=== PATIENT | male | born 1940 | race Caucasian/White ===

== ENCOUNTER → 2017-07-12 | Outpatient (CLI) | payer MEDICARE, OTHER | END | disposition home or self-care (01) | LOC: GMAL 10:13 | PROVIDERS: ATTEND Family Medicine | DX: D51.3 Other dietary vitamin B12 deficiency anemia (principal); Z12.5 Encounter for screening for malignant neoplasm of prostate; R53.82 Chronic fatigue, unspecified; E55.9 Vitamin D deficiency, unspecified; R53.83 Other fatigue | CPT/HCPCS: 82306; 82607; 84443; G0103 ==

== ENCOUNTER → 2017-08-01 | Outpatient (CLI) | payer MEDICARE, OTHER | END | disposition home or self-care (01) | LOC: GMAL 11:53 | PROVIDERS: ATTEND Family Medicine | DX: R97.20 Elevated prostate specific antigen [PSA] (principal) ==

== ENCOUNTER → 2018-07-25 | Outpatient (CLI) | payer MEDICARE, OTHER | LOC: GMAL 11:00 | PROVIDERS: ATTEND Family Medicine | DX: D51.3 Other dietary vitamin B12 deficiency anemia (principal); R97.20 Elevated prostate specific antigen [PSA]; R53.83 Other fatigue; E55.9 Vitamin D deficiency, unspecified ==

== ENCOUNTER → 2018-08-09 | Outpatient (CLI) | payer MEDICARE, OTHER ==
--- NOTE | 2018-08-09 16:29 | CT ---
EXAM DESCRIPTION: Chest w/Contrast : Computed Tomography. CLINICAL HISTORY: 77 years Male ABN CXR COMPARISON: Chest x-ray 08/02/2018. Prior CT scan abdomen and lower chest at outside imaging facility 10/17/2017. TECHNIQUE: Spiral-axial scans at 5 x 5 mm intervals through the lungs and thorax with IV contrast. 2.5 x 5 mm lung algorithm axial reconstructions. Coronal and sagittal 2.0 Mm reconstructions. No adverse reactions. Total Exam DLP: 477.45 mGy-cm. This exam was performed according to our departmental dose-optimization program which includes automated exposure control, adjustment of the mA and/or kV according to patient size and/or use of iterative reconstruction technique; to reduce radiation dose to as low as reasonably achievable (ALARA). Nodule measurements under 10 mm are given as mean value of 3 axes diameters. FINDINGS: Lungs and large airways: Emphysematous blebs in a centrilobular pattern more prevalent in the upper lung rojas compared to the lower lung rojas. 4 mm solid nodule subpleural right middle lobe on lung axial series 4, image 91. 3 mm and 4 mm solid nodules in the subpleural lateral left lower lobe on series 4, images 111 and 112. 4 mm subpleural solid nodule in the inferior lingula on series 4, image 96. 4 mm solid nodule or pleural thickening in the inferior lingula on axial series 4, image 122. Minimal bilateral posterior dependent atelectasis in the lower lobes. Pleural spaces: 3 mm calcified nodule in the abutting the pleura in the lateral right upper lobe on lung axial series 4, image 58. Scattered focal thickening. Also pleural thickening in the apices and at the lung bases. No effusion or pneumothorax. Mediastinum and Clara: 11 x 14 mm lymph node in the mid right hilum on soft tissue axial series 2, image 41 and 10 x 12 mm lymph node on series 2, image 34.. No other enlarged lymph nodes or soft tissue masses. Great vessels and Heart: Atherosclerotic calcifications in the aortic arch and descending thoracic aorta with minimal intimal wall thickening. Atherosclerotic coronary artery calcifications. Soft tissues of neck base, axillae, and chest wall: No enlarged axillary nodes. Heterogeneous thyroid enhancement bilaterally. Upper abdomen: No fluid or free air in the included peritoneal space. Adrenal glands and spleen normal size and enhancement. Pancreas liver and stomach partially visualized. Atherosclerotic calcifications in the included abdominal aorta. Osseous structures: Multiple levels of thoracic kyphosis. Round sclerotic lesion in the posterior superior aspect of the T3 vertebral body inferior to the endplate. Proximally 6 mm diameter. Smaller sclerotic densities in the T6 vertebral body. Anterior cervical fusion construct C5-C7. Minimal arthrosis in the left glenohumeral joint. Sternoclavicular arthrosis bilaterally. IMPRESSION: 1. Bilateral solid lung nodules 4 mm or less. Small round pleural calcification. Nodule versus pleural thickening in the inferior lingula. Emphysematous findings in the bilateral upper lung rojas more prominent. 2 right hilar nodes minimally enlarged. [facility] Best Practice guidelines following Fleischner Society 2017 Society for multiple pulmonary nodules, recommendation for optional CT at 12 month interval. Please see below*. 2. Round sclerotic lesion proximally 6 mm diameter in the posterior T3 vertebral body and similar sclerotic lesions but smaller in the T6 vertebral body. No other sclerotic or lytic bone lesions noted. Consider follow-up thoracic spine MRI or radionuclide bone scan. Differential diagnosis would include metastatic prostate cancer in this elderly male * 2017 Fleischner Society Recommendations for Multiple Solid Lung Nodules Follow-Up base on size (average of long- and short-axis diameters). Use most suspicious nodule for followup. Nodule Size <6 mm Low-Risk Patient: No routine follow-up Nodule Size <6 mm High-Risk Patient: Optional CT at 12 months Electronically signed by: Erasmo Palencia MD 08/09/2018 4:28 PM [facility]
== END ==
LOC: CT 12:18
PROVIDERS: ATTEND Family Medicine
DX: R93.89 Abnormal findings on diagnostic imaging of other specified body structures (principal); R91.1 Solitary pulmonary nodule

== ENCOUNTER → 2018-08-13 | Outpatient (CLI) | payer MEDICARE, OTHER ==
--- NOTE | 2018-08-13 15:44 | MRI ---
EXAM DESCRIPTION: Thoracic Spine w/wo Contrast: Magnetic Resonance Imaging. CLINICAL HISTORY: R93.89. Abnormal findings on diagnostic imaging of unspecified other body structures. COMPARISON: CT scan of the chest without contrast 08/09/2018. TECHNIQUE: Multiplanar, multiple standard sequences, non contrast MRI, thoracic spine. FINDINGS: Where a bright sclerotic lesion was seen on the CT scan, is a hypointense round nodular object in the posterior T3 vertebral body inferior to the superior endplate consistent with sclerotic bone. No contrast enhancement or marrow edema.. 2 smaller hypointense objects are seen in the T6 vertebral body consistent with dense sclerotic bone seen on the CT scan. No contrast enhancement. No marrow edema. Desiccation of the T1-2 through T9-10 discs. Anterior bulging and spur formation at some levels predominantly from T6-7 through T9-10 anteriorly. Decreased disc space at T6-7 with small posterior midline bulge abutting the cord. Normal contrast enhancement. Bilateral mild foraminal narrowing. Posterior right paracentral bulge of the T9-10 disc but not impinging the cord. Bilateral mild to moderate foraminal narrowing. No significant canal narrowing. Normal contrast enhancement. Other discs demonstrate normal signal with disc space preserved. No enhancement. Hypertrophic changes in the left facet at T10-11 abutting the posterior cord and narrowing the foramen on the left. Normal contrast enhancement. Remaining discs with normal signal. Disc spaces are preserved. Canal and foramina are patent. No scoliosis. Facet joints are unremarkable. Conus terminates at T12-L1. Cord with normal signal, no compression. Normal contrast enhancement. Paravertebral soft tissues are unremarkable. Normal marrow signal in the remaining vertebral bodies and the posterior elements. Vertebral bodies are not compressed at any level. IMPRESSION: 1. Sclerotic nodular objects in the T3 and T6 vertebral body seen on the recent lung CT scan are sclerotic bone on the MRI scan with no marrow edema or contrast enhancement suggestive of benign lesions. 2. Multiple levels of disc desiccation anterior bulging and spurs. Posterior disc bulging at 2 levels. No significant canal or foraminal stenosis at any level. Hypertrophic posterior facet impressing on the cord but no canal stenosis. Electronically signed by: Erasmo Palencia MD 08/13/2018 3:43 PM [facility]
== END ==
LOC: MRI 11:14
PROVIDERS: ATTEND Family Medicine
DX: R93.89 Abnormal findings on diagnostic imaging of other specified body structures (principal); M51.34 Other intervertebral disc degeneration, thoracic region

== ENCOUNTER 2018-10-17 05:41 | Day surgery (SDC) | payer MEDICARE, OTHER ==
[2018-10-17] MEDS ORDERED: LACTATED RINGERS 1,000 ML ONE (06:36)
--- NOTE | 2018-10-17 09:22 | OP ---
DATE OF PROCEDURE: 10/17/18 PREPROCEDURE DIAGNOSIS: 1. Average risk screening colonoscopy. 2. Last colonoscopy was over 10 years ago. POSTPROCEDURE DIAGNOSIS: 1. Colonic polyp. 2. Internal hemorrhoids. PROCEDURE: 1. Colonoscopy with snare polypectomy. SURGEON: Ashvin Chong MD. SEDATION: Monitored anesthesia care. ESTIMATED BLOOD LOSS: Less than 5 mL. PROCEDURE: Informed consent was obtained prior to sedation. The preprocedure cardiopulmonary assessment was satisfactory. The patient was brought to the Endoscopy Suite and placed in the left lateral decubitus position. The patient was then sedated by the anesthesia team. Digital rectal and perianal exams were normal. The tip of the Olympus colonoscope was inserted into the rectum and advanced under direct visualization to the cecum as identified by the presence of the appendiceal orifice and ileocecal valve. Upon reaching the cecum, the endoscope was slowly withdrawn. Preparation of the colon was adequate. In the distal transverse colon, there was an 8 mm flat polyp. This was resected with cold snare polypectomy and retrieved for pathology. A retroflexed view of the anal verge showed small non-bleeding internal hemorrhoids. The endoscope was then withdrawn from the patient and the procedure terminated. RECOMMENDATION: 1. Discharge the patient home with escort. 2. Resume regular diet. 3. Continue present medications. 4. Followup pathology. 5. Consider surveillance colonoscopy in 3 years' time. 6. Return to my office p.r.n. #[id number] MTDD
[2018-10-17] MEDS ORDERED: PROPOFOL 200 MG/20 ML VIAL IV ONE (10:00)
[2018-10-17 10:09] VITALS: BP 120/65; TEMP 98.6; O2SAT 95
== END 2018-10-17 09:55 | disposition home or self-care (01) ==
LOC: AMB 05:41
PROVIDERS: ATTEND Internal Medicine Gastroenterology
DX: Z12.11 Encounter for screening for malignant neoplasm of colon (principal); D12.3 Benign neoplasm of transverse colon; K64.8 Other hemorrhoids; I10 Essential (primary) hypertension; J45.909 Unspecified asthma, uncomplicated; E78.00 Pure hypercholesterolemia, unspecified; Z86.010 Personal history of colon polyps; Z85.46 Personal history of malignant neoplasm of prostate; Z87.891 Personal history of nicotine dependence; Z79.899 Other long term (current) drug therapy
CPT/HCPCS: 00812; 45385; 88305; J3490; J7120

== ENCOUNTER → 2019-02-11 | Outpatient (CLI) | payer MEDICARE, OTHER ==
--- NOTE | 2019-02-19 11:03 | CT ---
Study: CT Chest. Indication: ABNL FINDINGS OF LUNG FIELD Technique: CT imaging of the chest obtained after intravenous administration of contrast. This exam was performed according to our departmental dose-optimization program, which includes automated exposure control, adjustment of the mA and/or kV according to patient size and/or use of iterative reconstruction technique. Comparison: None Findings: Pronounced atherosclerosis great vessels, aorta, coronary arteries. Degenerative changes of the spine noted. Several prominent bilateral hilar lymph nodes with the largest at the right inferior hilar region measuring 14 mm x 12 mm. Moderate emphysema. No consolidation, pleural effusion, pneumothorax, or pulmonary mass. Several scattered noncalcified pulmonary nodules throughout the lungs. The largest at the left lower lobe on image 106 measures 4.5 mm. Impression: Enlarged bilateral hilar lymph nodes, right greater than left. Follow-up contrast-enhanced CT chest in 6 months recommended. Moderate emphysema with several noncalcified nodules throughout the lungs measuring up to 4.5 mm. Follow-up CT chest in 12 months is optional. Atherosclerosis. No consolidation. Electronically signed by: Ab Edmondson MD 02/19/2019 11:01 AM CDT
== END ==
LOC: CT 13:30
PROVIDERS: ATTEND Internal Medicine Critical Care Medicine
DX: R91.8 Other nonspecific abnormal finding of lung field (principal); I70.90 Unspecified atherosclerosis; J43.9 Emphysema, unspecified; R59.0 Localized enlarged lymph nodes

== ENCOUNTER → 2019-09-02 | Outpatient (CLI) | payer MEDICARE, OTHER | LOC: GMAL 14:54 | PROVIDERS: ATTEND Family Medicine | DX: R97.20 Elevated prostate specific antigen [PSA] (principal); D51.3 Other dietary vitamin B12 deficiency anemia; R53.83 Other fatigue; E55.9 Vitamin D deficiency, unspecified; I10 Essential (primary) hypertension ==

== ENCOUNTER → 2019-10-01 | Outpatient (CLI) | payer MEDICARE, OTHER | DX: R59.1 Generalized enlarged lymph nodes (principal); J40 Bronchitis, not specified as acute or chronic; R91.8 Other nonspecific abnormal finding of lung field; I10 Essential (primary) hypertension; J44.9 Chronic obstructive pulmonary disease, unspecified; C61 Malignant neoplasm of prostate ==

== ENCOUNTER → 2020-02-03 | Outpatient (CLI) | payer MEDICARE, OTHER ==
--- NOTE | 2020-02-03 11:00 | MRI ---
EXAM DESCRIPTION: Cervical Spine CLINICAL HISTORY: 79 years Male, CERVICALGIA COMPARISON: None. TECHNIQUE: Multisequence, multiplanar images of the cervical spine obtained without intravenous contrast. FINDINGS: Vertebrae: Susceptibility artifact secondary to anterior fusion construct at C5-C6 and C6-C7. Within these limitations, no acute fracture acute compression deformity appreciated. Moderate cervical kyphosis from C2 through C4 centered at C3. Trace retrolisthesis of C3 on C4 which may be contributed by facet hypertrophy. No suspicious marrow signal of the nonsurgical levels. Spinal cord: No cerebellar ectopia. Normal cord signal. Multilevel flattening of the spinal cord as detailed below. Discs, facets, spinal canal, and neural foramina: Interbody implant centered in the C5-C6 and C6-C7 disc spaces. Disc desiccation within the remaining cervical spine. Mild C3-C4 and moderate C4-C5 disc space narrowing. C2-C3: No disc osteophyte complex. Posterior central annular fissure measuring 4 x 2 mm. Moderate right and mild left uncovertebral spurring. Moderate bilateral facet arthropathy. Mild spinal canal stenosis. Moderate right and mild left neural foraminal stenosis. C3-C4: Mild uncovering posterior disc space and superimposed small disc osteophyte complex measuring no greater than 2-3 mm in thickness AP. Moderate severe uncovertebral spurring. Moderate bilateral facet arthropathy. Moderate spinal canal stenosis with AP narrowing to 6 mm and focal indentation of the ventral spinal cord. Moderate severe bilateral neural foraminal stenosis. C4-C5: Moderate posterior central disc osteophyte complex measuring up to 4 mm AP and 7 mm transverse. Severe facet arthropathy. Severe spinal canal stenosis with focal indentation of the ventral spinal cord. Moderate severe bilateral neural foraminal stenosis. C5-6: Interbody fusion. Moderate spinal canal stenosis. Mild bilateral neural foraminal stenosis. C6-C7: Interbody fusion. Mild spinal canal stenosis. Mild bilateral neural foraminal stenosis. C7-T1: No significant findings. Other findings: Unremarkable. IMPRESSION: 1. No acute fracture. 2. ACDF at C5-C6, C6-C7. 3. Cervical spondylosis with kyphosis centered at C3 and grade 1 retrolisthesis of C3 on C4 contribute by facet hypertrophy. 4. Up to moderate spinal canal stenosis and multilevel flattening of the ventral spinal cord as above. 5. Multilevel neural foraminal compromise, greatest and moderate to severe at bilateral C4, bilateral C5. Electronically signed by: Man Trujillo MD 02/03/2020 10:59 AM CDT
--- NOTE | 2020-02-03 17:10 | CT ---
EXAM DESCRIPTION: Abdomen/Pelvis w/wo Contrast: Computed Tomography. CLINICAL HISTORY: GENERALIZED ABDOMINAL PAIN COMPARISON: None. TECHNIQUE: Spiral-axial scans at 5 x 5 mm intervals through the abdomen and pelvis before and after 75 mL Optiray 320 nonionic IV contrast. Water-soluble Gastrografin oral contrast. Coronal and sagittal 2.0 mm reconstructions. No delayed scans. N no adverse reactions. Total Exam DLP 2010 mGy - cm. This exam was performed according to our departmental CT dose-optimization program which includes automated exposure control, adjustment of the mA and/or kV according to patient size and/or use of iterative reconstruction technique; to reduce radiation dose to as low as reasonably achievable (ALARA). FINDINGS: Lung bases and pleura: Minimal scarring is stable. Liver, Stomach, Spleen, Adrenal Glands: Long axis right lobe 17 cm. Small sliding hiatal hernia. Oral contrast in the stomach. Other solid organs are negative. Pancreas, Gallbladder, Ducts: The head of the pancreas is enlarged and heterogeneous with mixed enhancement; slight irregularity of the capsule and fatty stranding. Small hypoechoic object could represent a dilated duct or early pseudocyst. Body and tail the pancreas are unremarkable. Gallbladder is minimally distended as is the distal common bile duct. Pancreatic duct not seen. Kidneys and Ureters: Multiple vascular calcifications. Possible 2 mm stone in the upper collecting system of the right kidney. No obstructive process. Symmetric minimal perirenal stranding. Ureters are negative. Mesentery: Stranding around the pancreatic head as described. No free air or free fluid. Aorta: Moderate atherosclerotic disease predominately mid and distal aorta extending into the bilateral common iliac arteries with narrowing and possible stenosis proximal left common iliac artery. Small Bowel: Thickening of the wall of the duodenum abutting the head of the pancreas with minimal dilation. Oral contrast throughout the small bowel. No distention. Terminal Ileum/Cecum: Normal caliber. Appendix absent. Surgical clips at epididymides site. No inflammatory changes. Colon: Minimal to moderate fecal matter predominantly proximal. Diverticula distal descending colon and sigmoid colon but no complications. Pelvic Organs: Prostate gland abutting the base of the urinary bladder which contains IV contrast. No free fluid. Spine and Bony Pelvis: Advanced spondylosis L2-3, L4-5, and L5-S1. Significant foraminal narrowing bilaterally at the lower 2 levels with scoliosis. Also spondylosis lower thoracic spine. Bilateral arthrosis upper SI joints and bilateral hip joints. Abdominal Wall/Back Soft Tissues: Large left fatty inguinal hernia smaller on the right with no incarcerated bowel or other complications. IMPRESSION: 1. CT findings of acute pancreatitis in the head of the pancreas. Small dilated duct more likely than small pseudocyst in the pancreatic head. Distal common bile duct is minimally dilated. Thickening of the medial wall of the adjacent duodenum but no obstruction. No free air or free fluid. 2. Diffuse atherosclerotic calcifications in the bilateral kidneys with a 2 mm radiodense stone in the upper pole of the right kidney without obstruction. Advanced atherosclerotic disease in the mid and distal aorta. Especially the left common iliac artery which may be critically stenotic. 3. Small sliding hiatal hernia with no complications. Constipation proximal colon and diverticulosis distal colon with no complications. Large left inguinal hernia and small right inguinal hernia with no incarcerated bowel or other complications. Advanced arthrosis bilateral hip joints and multiple levels of lumbar spondylosis with significant foraminal narrowing as described above. CRITICAL COMMUNICATION: The critical value was communicated directly by Dr. Palencia via phone call, with Dr. Indra Weiner, at approximately 1705 hours, on February 03, 2020. Electronically signed by: Erasmo Palencia MD 02/03/2020 5:08 PM CDT
== END ==
LOC: MRI 09:00
PROVIDERS: ATTEND Family Medicine
DX: K85.90 Acute pancreatitis without necrosis or infection, unspecified (principal); I70.0 Atherosclerosis of aorta; I70.1 Atherosclerosis of renal artery; N20.0 Calculus of kidney; K44.9 Diaphragmatic hernia without obstruction or gangrene; K57.30 Diverticulosis of large intestine without perforation or abscess without bleeding; K40.20 Bilateral inguinal hernia, without obstruction or gangrene, not specified as recurrent; K59.00 Constipation, unspecified; M16.0 Bilateral primary osteoarthritis of hip; M47.896 Other spondylosis, lumbar region; Z98.1 Arthrodesis status; M47.892 Other spondylosis, cervical region; M48.02 Spinal stenosis, cervical region; M46.92 Unspecified inflammatory spondylopathy, cervical region; M40.202 Unspecified kyphosis, cervical region; M43.12 Spondylolisthesis, cervical region

== ENCOUNTER → 2020-02-04 | Outpatient (CLI) | payer MEDICARE, OTHER ==
--- NOTE | 2020-02-04 17:21 | US ---
EXAM DESCRIPTION: Abdomen,Complete: Ultrasound. CLINICAL HISTORY: 79 years MaleGENERALIZED ABDOMINAL PAIN COMPARISON: CT scan abdomen and pelvis February 02. TECHNIQUE: Transabdominal scanning: grayscale and Doppler modes. FINDINGS: Gallbladder: Dependent sludge in the gallbladder with no stones. Minimal enlargement. No fluid around the gallbladder. No wall thickening. 2.7 mm. Tender with transducer pressure. Common bile duct: caliber 4.3 mm within normal limits. Liver: normal echogenicity; contour liver capsule smooth where seen. Small cyst subcapsular abutting the shaista hepatis measures 9.4 mm. No fluid around the liver. Intrahepatic biliary ducts normal caliber. Doppler hepatopedal flow and normal caliber portal vein. Caliber 11 mm at the shaista hepatis. Long axis right lobe 17.7 cm. Pancreas: Head of pancreas not well visualized; remainder of pancreas unremarkable size and echogenicity. Duct not seen. Complete abdominal aorta: Normal caliber from the proximal segment to the distal bifurcation. IVC: visualized and normal caliber. Right kidney: long axis measures 9.8 cm.; Volume 167.9 mL. Increased cortical Echogenicity, but less than the liver. 8 mm cortical thickness. No echogenic stones or hydronephrosis. Color Doppler shows vascularity. Left kidney: long axis measures 10.6 cm.; volume 190.2 mL Increased cortical Echogenicity, but less than the liver. 13 mm cortical thickness. No echogenic stones or hydronephrosis. Color Doppler shows vascularity. Spleen: Normal. No focal lesions.. Long axis is 10.7 cm.. Other: None. IMPRESSION: 1. Gallbladder minimally dilated with dependent sludge. Tenderness with transducer pressure. This can indicate a calculus or chronic cholecystitis. Consider radionuclide hepatobiliary function evaluation of gallbladder ejection fraction. Normal caliber common bile duct. 2. Liver is minimally enlarged but otherwise unremarkable. Head of pancreas not well seen. Please see previous CT scan images and report. No ascites. 3. Bilateral kidneys with cortical thinning more on the right and evidence of medical renal disease. No stones or hydronephrosis. Spleen is unremarkable. Normal caliber of the great vessels. Electronically signed by: Erasmo Palencia MD 02/04/2020 5:19 PM CDT
== END ==
LOC: LAB.O 10:09
PROVIDERS: ATTEND Family Medicine
DX: K85.90 Acute pancreatitis without necrosis or infection, unspecified (principal); K82.9 Disease of gallbladder, unspecified; N28.9 Disorder of kidney and ureter, unspecified; R16.0 Hepatomegaly, not elsewhere classified

== ENCOUNTER 2020-08-12 15:05 | Emergency (ER) | payer MEDICARE, OTHER ==
--- NOTE | 2020-08-12 17:07 | ED.PDOC ---
History of Present Illness - General Chief Complaint: Respiratory Problem Stated Complaint: hypoxic, sob, Time Seen by Provider: 08/12/20 16:17 Source: patient, family Exam Limitations: no limitations, physical impairment - APPEARS HARD OF HEARING, HAS TROUBLE FOLLOWING QUESTIONS. - History of Present Illness Initial Comments: BEGAN HAVING FEVER AND CHILLS ON 08/08/20, TESTED POSITIVE FOR COVID-19 ON 08/11. HAD INTENSE SOB AT HOME THIS MORNING. WAS ORIGINALLY SCHEDULED TO GET BAM TODAY, BUT WAS FOUND VERY HYPOXIC AT INFUSION THERAPY, THE BAM INFUSION WAS STOPPED HE NO LONGER MET PROTOCOL PARAMETERS DUE TO REQUIREMENT FOR OXYGEN TO MAINTAIN HIS NORMAL OXYGEN SATURATION. AND HE WAS TRANSFERED TO THE ER. PATIENT REPORTS A HISTORY OF COPD BUT DOES NOT NORMALLY REQUIRE OXYGEN AT HOME. HE AND HIS STATE HIS ONLY OTHER MEDICAL PROBLEM IS HYPERTENSION. Possible Cause: no prior episodes Improving Factors: nothing Worsening Factors: nothing Associated Symptoms: fever/chills - TEMP TO 102 AT HOME, muscle aches, shortness of breath, other Allergies/Adverse Reactions: Allergies NO KNOWN ALLERGY Allergy (Verified 10/26/13 09:59) Home Medications: Ambulatory Orders Amlodipine Besylate 10 mg PO QAM 10/15/18 Budesonide-Formoterol Fumarate [Symbicort 160-4.5 Mcg/Act] 1 % PO BID 10/15/18 Nutritional Supplements [Juice Plus Fibre] 1 liq PO DAILY 10/15/18 Review of Systems - Review of Systems Constitutional: States: chills, diaphoresis, fever EENTM: States: see HPI Respiratory: States: see HPI Cardiology: States: no symptoms reported Gastrointestinal/Abdominal: States: no symptoms reported Genitourinary: States: no symptoms reported Musculoskeletal: States: no symptoms reported Skin: States: no symptoms reported Endocrine: States: no symptoms reported Hematologic/Lymphatic: States: no symptoms reported Past Medical History (General) - Patient Medical History Hx of COPD: Yes Hx Congestive Heart Failure: No Hx Diabetes: No Hx Cancer: Yes Hx MRSA: No MRSA Source:: Wound Surgical History: cholecystectomy - Vaccination History Hx Tetanus, Diphtheria Vaccination: Yes Hx Influenza Vaccination: Yes Hx Pneumococcal Vaccination: Yes Immunizations Up to Date: Yes - Social History Hx Alcohol Use: No - Female History Patient is a Female of Child Bearing Age (10 -59 yrs old): No Family Medical History - Family History Mother Living Status: Unknown Physical Exam - Physical Exam General Appearance: Alert, Well Developed, Well Groomed, Well Hydrated, Well Nourished ENT Exam: normal ENT inspection, hearing grossly normal, TMs normal, pharynx normal, nasal congestion Neck: non-tender, full range of motion, supple, normal inspection, trachea midline Respiratory: chest non-tender, lungs clear, normal breath sounds, no respiratory distress, no accessory muscle use Cardiovascular/Chest: normal peripheral pulses, regular rate, rhythm, no edema, no gallop Gastrointestinal/Abdominal: normal bowel sounds, non tender, soft, no pulsatile mass Extremity: normal range of motion, non-tender, normal inspection 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 PATIENT HAD SOME ANXIETY FROM GOING TO CT AND RECEIVED SOME ATIVAN AND THE ANXIETY IS MUCH IMPROVED NOW. DISCUSSED WITH DU RODRIGUEZ, THANK YOU DU FOR CARING FOR OUR MUTUAL PATIENT. PATIENT STARTED ON IV REMDESIVIR, PREDNISONE AND ABX IN THE ED 08/12/20 19:48 Departure - Departure Clinical Impression: COVID-19, Hypoxia Time of Disposition: 19:00 Disposition: Admit Patient Condition: Fair Departure Forms: ED Discharge - Pt. Copy, Patient Portal Self Enrollment Referrals: Indra Weiner III, MD [Primary Care Provider] - 1-2 Weeks Home Medications: Ambulatory Orders Amlodipine Besylate 10 mg PO QAM 10/15/18 Budesonide-Formoterol Fumarate [Symbicort 160-4.5 Mcg/Act] 1 % PO BID 10/15/18 Nutritional Supplements [Juice Plus Fibre] 1 liq PO DAILY 10/15/18
--- NOTE | 2020-08-12 17:15 | RAD ---
EXAM DESCRIPTION: Chest,1 View CLINICAL HISTORY: COVID COMPARISON: Chest radiograph dated February 21, 2020 TECHNIQUE: One view radiograph of the chest FINDINGS: Lower cervical ACDF construct is present. Cardiac silhouette shows normal heart size. Pulmonary vascularity is within normal limits. Increase alveolar opacities lateral aspect of the right lung and left lung base. No pleural effusion. No pneumothorax. No acute osseous abnormality. IMPRESSION: Increased alveolar opacities lateral right lung and left lung base compatible with infectious/inflammatory processes such as pneumonia (including COVID 19 pneumonia). Recommend follow-up chest radiograph to resolution. Electronically signed by: Indra Newell MD 08/12/2020 5:13 PM [facility]
[2020-08-12] MEDS ORDERED: DEXAMETHASONE INJ 4 MG/ML VIAL IV ONE (18:27)
[2020-08-12] MEDS ORDERED: REMDESIVIR 200 MG in SODIUM CHLORIDE 0.9% 250ML 250 ML IVPB ONE (18:27)
[2020-08-12] MEDS ORDERED: AZITHROMYCIN IV 500 MG in SODIUM CHLORIDE 0.9% 250ML 250 ML IVPB ONE (18:27)
[2020-08-12] MEDS ORDERED: cefTRIAXone SODIUM 2 GM in SODIUM CHL 0.9% 100ML MINI-BAG 100 ML IVPB ONE (18:28)
--- NOTE | 2020-08-12 21:08 | CT ---
EXAM DESCRIPTION: CTA Chest 08/12/2020 8:57 PM [facility] [employer] CLINICAL HISTORY: 79 years, Male, hypoxia, covid, r/o pe COMPARISON: 10/01/2019. PROCEDURE: Multiple transaxial tomograms of the chest were obtained from the lung apices through the lung bases utilizing 2 mm slice thickness at 2 mm interval reconstruction after the administration of large bolus of IV contrast for complete opacification of the pulmonary arteries. Subsequent maximum intensity projection images were generated in the coronal and sagittal plane for review. An individualized dose optimization technique, Automated Exposure Control, was utilized for the performed procedure. FINDINGS: The lungs parenchyma demonstrate the presence of a minimal bilateral subpleural groundglass opacities in a background of centrilobular emphysematous changes. Previous described pulmonary nodules are difficult to visualize due to motion artifact. The trachea mainstem bronchus demonstrate to be normal. There is no significant pericardial or pleural effusions. The thoracic aorta demonstrate intimal aortic arch calcification. No evidence for significant thoracic aortic dissection and/or aneurysm. The heart is normal in size. No evidence for right ventricular strain. There are coronary artery calcifications. There is prominent right precarinal lymph node measuring approximately 1 cm on image 62/147, right hilar lymphadenopathy measuring 1.3 cm on image 70/147, left hilar lymphadenopathy measuring 1.1 cm on image 74/147, right infrahilar lymphadenopathy measuring 1.7 cm on image 81/147, left infrahilar lymphadenopathy measuring 1.3 cm on image 80/147. Pulmonary arteries demonstrate to be normal, no intraluminal defect are seen that would suggest pulmonary embolus. The axillary regions demonstrate to be clear. The bone windows demonstrate again the presence of anterior plate fixation device lower cervical spine anterior spondylosis of the thoracic spine. There is a small hiatal hernia. The visualized portions of the upper abdomen demonstrate to unremarkable. IMPRESSION: SOMEWHAT COMPROMISED STUDY DUE TO MOTION ARTIFACT. NO EVIDENCE FOR PULMONARY EMBOLUS AND/OR THORACIC AORTIC THORACIC DISSECTION. 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 CENTRILOBULAR EMPHYSEMATOUS CHANGES. IMAGING FEATURES CAN BE SEEN WITH COVID-19 PNEUMONIA, THOUGH ARE NONSPECIFIC AND CAN OCCUR WITH A VARIETY OF INFECTIOUS AND NONINFECTIOUS PROCESSES. (REFERENCE: [email or web address]). SLIGHT INCREASED REACTIVE MEDIASTINAL AND HILAR LYMPHADENOPATHY WHEN COMPARED TO PRIOR STUDY. SMALL HIATAL HERNIA. Electronically signed by: Indra Chowdhury MD 08/12/2020 9:06 PM [facility] REG[facility]
[2020-08-12] MEDS ORDERED: REMDESIVIR IV 100 MG VIAL ONE (23:45)
[2020-08-12] MEDS ORDERED: SODIUM CHLORIDE 0.9% 250ML 250 ML ONE (23:45)
[2020-08-13] MEDS ORDERED: DEXAMETHASONE INJ 10 MG/ML VIAL IV ONE (07:08)
[2020-08-13] MEDS ORDERED: IPRATROPIUM/ALBUTEROL 3 ML VIAL NEB ONE ×2 (07:09→10:43)
[2020-08-13] MEDS ORDERED: ENOXAPARIN SODIUM 40 MG/0.4 ML SYG SUBCU ONE (07:41)
[2020-08-13] MEDS ORDERED: ACETYLCYSTEIN 20 % 6,000 MG/30 ML VIAL NEB ONE (10:44)
[2020-08-13 13:14] VITALS: BP 146/49; TEMP 99.2; O2SAT 92
== END 2020-08-13 13:30 | disposition short-term general hospital (02) ==
LOC: INFRM 15:05 → ER 15:05 → EDSTATUS 16:13 → ER 08-13 13:30
DX: U07.1 COVID-19 (principal); J12.82 Pneumonia due to coronavirus disease 2019; R09.02 Hypoxemia; J44.9 Chronic obstructive pulmonary disease, unspecified; I10 Essential (primary) hypertension; Z79.899 Other long term (current) drug therapy
CPT/HCPCS: 36600; 71045; 71275; 80053; 82803; 82805; 83605; 84484; 85025; 85379; 86140; 87040; 94640; J0456; J0696; J1100; J1650; J2060; J7050; J7620